=== PATIENT | female | born 1935 | race Two or more races ===

== ENCOUNTER 2017-10-22 04:37 | Emergency (ER) | payer MEDICARE, OTHER ==
[~2017-10-22] VITALS: Ht 154.9 cm; Wt 44.5 kg
--- NOTE | 2017-10-22 04:40 | ED.ADGEN ---
Past History Past Medical History: Cancer (SILVIO WEEKS MD) Past Surgical History: Colectomy (SILVIO WEEKS MD) Adult General Chief Complaint Chief Complaint " I have pain... I have nausea... " (SILVIO WEEKS MD) [facility] HPI Patient is a 82 year old female who presents with above hx and complaints of Nausea, abd. pain and constipation. Pt. has hx of Colon cancer- with resection 10 yrs ago. Pt. has hx of constipation since the cancer surgery. Pt. denies intake of bad food. Pt. symptoms present the last 24 hrs. Pt. denies any travel, trauma , bad food or specific ill contacts. Pt. normally follow with Dr. Kenney. (SILVIO WEEKS MD) Review of Systems Review of Systems Constitutional: Denies fever or chills [] Eyes: Denies change in visual acuity, redness, or eye pain [] HENT: Denies nasal congestion or sore throat [] Respiratory: Denies cough or shortness of breath [] Cardiovascular: No additional information not addressed in HPI [] GI: complaints of abdominal pain, nausea,. Denies vomiting, bloody stools or diarrhea [] : Denies dysuria or hematuria [] Musculoskeletal: Denies back pain or joint pain [] Integument: Denies rash or skin lesions [] Neurologic: Denies headache, focal weakness or sensory changes [] Endocrine: Denies polyuria or polydipsia [] All other systems were reviewed and found to be within normal limits, except as documented in this note. (SILVIO WEEKS MD) Family History Family History Non-contributory (SILVIO WEEKS MD) Current Medications Current Medications Current Medications Medications (Trade) Dose Ordered Sig/Phil Start Time Stop Time Status Last Admin Dose Admin Hydromorphone HCl (Dilaudid) 0.5 mg PRN Q30MIN PRN 10/22/17 07:15 10/22/17 09:03 DC 10/22/17 07:22 0.5 MG Info (Do NOT chart on this entry -- for MONITORING) 1 each PRN DAILY PRN 10/22/17 06:00 10/22/17 09:03 DC Iohexol (Omnipaque 240 Mg/ml) 50 ml 1X ONCE 3/14/18 06:00 10/22/17 06:02 DC 10/22/17 06:36 50 ML Iohexol (Omnipaque 300 Mg/ml) 75 ml 1X ONCE 10/22/17 06:00 10/22/17 06:02 DC 10/22/17 06:37 75 ML Ondansetron HCl (Zofran) 8 mg 1X ONCE 10/22/17 06:15 10/22/17 06:19 DC 10/22/17 06:10 8 MG Sodium Chloride 500 ml @ 0 mls/hr 1X ONCE 10/22/17 07:15 10/22/17 07:17 DC 10/22/17 07:15 100 MLS/HR (KY FELIPE MD) Allergies Allergies Allergies Coded Allergies Type Severity Reaction Last Updated Verified No Known Allergies Allergy Unknown 10/22/17 Yes (KY FELIPE MD) Physical Exam Physical Exam Constitutional: moderately acute distress, non-toxic appearance. [] HENT: Normocephalic, atraumatic, bilateral external ears normal, oropharynx moist, no oral exudates, nose normal. [] Eyes: PERRLA, EOMI, conjunctiva normal, no discharge. [] Neck: Normal range of motion, no tenderness, supple, no stridor. [] Cardiovascular:Bradycardia Heart rate regular rhythm, no murmur [] Lungs & Thorax: Bilateral breath sounds clear to auscultation [] Abdomen: Bowel sounds normal, soft, generalizes abd. tenderness, no masses, no pulsatile masses. Large mid line scar. Skin: Warm, dry, no erythema, no rash. [] Back: No tenderness, no CVA tenderness. [] Extremities: No tenderness, no cyanosis, no clubbing, ROM intact, no edema. Arthritic changes. Neurologic: Alert and oriented X 3, normal motor function, normal sensory function, no focal deficits noted. [] Psychologic: Affect anxious, judgement normal, mood normal. [] (SILVIO WEEKS MD) Current Patient Data Vital Signs Vital Signs Date Time Temp Pulse Resp B/P (MAP) Pulse Ox O2 Delivery O2 Flow Rate FiO2 10/22/17 08:41 75 16 132/69 (90) 96 Room Air 10/22/17 07:56 2.0 10/22/17 04:37 98.4 (KY FELIPE MD) Lab Results Laboratory Tests Test 10/22/17 04:55 10/22/17 05:19 Urine Collection Type Unknown Urine Color Yellow Urine Clarity Clear Urine pH 5.5 Urine Specific Kelley >=1.030 Urine Protein Neg (NEG-TRACE) Urine Glucose (UA) Neg mg/dL (NEG) Urine Ketones (Stick) Neg mg/dL (NEG) Urine Blood Trace (NEG) Urine Nitrite Neg (NEG) Urine Bilirubin Neg (NEG) Urine Urobilinogen Dipstick 0.2 mg/dL (0.2 mg/dL) Urine Leukocyte Esterase Neg (NEG) Urine RBC 0 /HPF (0-2) Urine WBC Rare /HPF (0-4) Urine Squamous Epithelial Cells Few /LPF Urine Bacteria 0 /HPF (0-FEW) Urine Opiates Screen Neg (NEG) Urine Methadone Screen Neg (NEG) Urine Barbiturates Neg (NEG) Urine Phencyclidine Screen Neg (NEG) Urine Amphetamine/Methamphetamine Neg (NEG) Urine Benzodiazepines Screen Neg (NEG) Urine Cocaine Screen Neg (NEG) Urine Cannabinoids Screen Neg (NEG) Urine Ethyl Alcohol Neg (NEG) Influenza Type A (Rapid) Negative (NEGATIVE) Influenza Type B (Rapid) Negative (NEGATIVE) White Blood Count 9.2 x10^3/uL (4.0-11.0) Red Blood Count 4.62 x10^6/uL (3.50-5.40) Hemoglobin 15.7 g/dL (12.0-15.5) H Hematocrit 45.0 % (36.0-47.0) Mean Corpuscular Volume 97 fL (79-100) Mean Corpuscular Hemoglobin 34 pg (25-35) Mean Corpuscular Hemoglobin Concent 35 g/dL (31-37) Red Cell Distribution Width 12.6 % (11.5-14.5) Platelet Count 222 x10^3/uL (140-400) Neutrophils (%) (Auto) 88 % (31-73) H Lymphocytes (%) (Auto) 5 % (24-48) L Monocytes (%) (Auto) 7 % (0-9) Eosinophils (%) (Auto) 0 % (0-3) Basophils (%) (Auto) 0 % (0-3) Neutrophils # (Auto) 8.0 x10^3uL (1.8-7.7) H Lymphocytes # (Auto) 0.4 x10^3/uL (1.0-4.8) L Monocytes # (Auto) 0.6 x10^3/uL (0.0-1.1) Eosinophils # (Auto) 0.0 x10^3/uL (0.0-0.7) Basophils # (Auto) 0.0 x10^3/uL (0.0-0.2) Prothrombin Time 9.4 SEC (9.4-11.4) Prothrombin Time INR 0.9 (0.9-1.1) PTT 21 SEC (23-33) L Sodium Level 140 mmol/L (136-145) Potassium Level 3.6 mmol/L (3.5-5.1) Chloride Level 103 mmol/L (98-107) Carbon Dioxide Level 26 mmol/L (21-32) Anion Gap 11 (6-14) Blood Urea Nitrogen 25 mg/dL (7-20) H Creatinine 0.8 mg/dL (0.6-1.0) Estimated GFR (Cockcroft-Gault) 68.8 Glucose Level 117 mg/dL (70-99) H Calcium Level 9.8 mg/dL (8.5-10.1) Total Bilirubin 0.7 mg/dL (0.2-1.0) Direct Bilirubin 0.2 mg/dL (0.0-0.2) Aspartate Amino Transferase (AST) 29 U/L (15-37) Alanine Aminotransferase (ALT) 37 U/L (14-59) Alkaline Phosphatase 92 U/L (46-116) Creatine Kinase 65 U/L (26-192) Creatine Kinase MB (Mass) 1.8 ng/mL (0.0-3.6) Creatine Kinase MB Relative Index 2.8 % (0-4) Troponin I Quantitative < 0.017 ng/mL (0-0.055) Total Protein 7.3 g/dL (6.4-8.2) Albumin 3.9 g/dL (3.4-5.0) Amylase Level 42 U/L (25-115) Lipase 147 U/L (73-393) (KY FELIPE MD) Lab Results Laboratory Tests Test 10/22/17 04:55 10/22/17 05:19 Urine Collection Type Unknown Urine Color Yellow Urine Clarity Clear Urine pH 5.5 Urine Specific Kelley >=1.030 Urine Protein Neg (NEG-TRACE) Urine Glucose (UA) Neg mg/dL (NEG) Urine Ketones (Stick) Neg mg/dL (NEG) Urine Blood Trace (NEG) Urine Nitrite Neg (NEG) Urine Bilirubin Neg (NEG) Urine Urobilinogen Dipstick 0.2 mg/dL (0.2 mg/dL) Urine Leukocyte Esterase Neg (NEG) Urine RBC 0 /HPF (0-2) Urine WBC Rare /HPF (0-4) Urine Squamous Epithelial Cells Few /LPF Urine Bacteria 0 /HPF (0-FEW) Urine Opiates Screen Neg (NEG) Urine Methadone Screen Neg (NEG) Urine Barbiturates Neg (NEG) Urine Phencyclidine Screen Neg (NEG) Urine Amphetamine/Methamphetamine Neg (NEG) Urine Benzodiazepines Screen Neg (NEG) Urine Cocaine Screen Neg (NEG) Urine Cannabinoids Screen Neg (NEG) Urine Ethyl Alcohol Neg (NEG) Influenza Type A (Rapid) Negative (NEGATIVE) Influenza Type B (Rapid) Negative (NEGATIVE) White Blood Count 9.2 x10^3/uL (4.0-11.0) Red Blood Count 4.62 x10^6/uL (3.50-5.40) Hemoglobin 15.7 g/dL (12.0-15.5) H Hematocrit 45.0 % (36.0-47.0) Mean Corpuscular Volume 97 fL (79-100) Mean Corpuscular Hemoglobin 34 pg (25-35) Mean Corpuscular Hemoglobin Concent 35 g/dL (31-37) Red Cell Distribution Width 12.6 % (11.5-14.5) Platelet Count 222 x10^3/uL (140-400) Neutrophils (%) (Auto) 88 % (31-73) H Lymphocytes (%) (Auto) 5 % (24-48) L Monocytes (%) (Auto) 7 % (0-9) Eosinophils (%) (Auto) 0 % (0-3) Basophils (%) (Auto) 0 % (0-3) Neutrophils # (Auto) 8.0 x10^3uL (1.8-7.7) H Lymphocytes # (Auto) 0.4 x10^3/uL (1.0-4.8) L Monocytes # (Auto) 0.6 x10^3/uL (0.0-1.1) Eosinophils # (Auto) 0.0 x10^3/uL (0.0-0.7) Basophils # (Auto) 0.0 x10^3/uL (0.0-0.2) Prothrombin Time 9.4 SEC (9.4-11.4) Prothrombin Time INR 0.9 (0.9-1.1) PTT 21 SEC (23-33) L Sodium Level 140 mmol/L (136-145) Potassium Level 3.6 mmol/L (3.5-5.1) Chloride Level 103 mmol/L (98-107) Carbon Dioxide Level 26 mmol/L (21-32) Anion Gap 11 (6-14) Blood Urea Nitrogen 25 mg/dL (7-20) H Creatinine 0.8 mg/dL (0.6-1.0) Estimated GFR (Cockcroft-Gault) 68.8 Glucose Level 117 mg/dL (70-99) H Calcium Level 9.8 mg/dL (8.5-10.1) Total Bilirubin 0.7 mg/dL (0.2-1.0) Direct Bilirubin 0.2 mg/dL (0.0-0.2) Aspartate Amino Transferase (AST) 29 U/L (15-37) Alanine Aminotransferase (ALT) 37 U/L (14-59) Alkaline Phosphatase 92 U/L (46-116) Creatine Kinase 65 U/L (26-192) Creatine Kinase MB (Mass) 1.8 ng/mL (0.0-3.6) Creatine Kinase MB Relative Index 2.8 % (0-4) Troponin I Quantitative < 0.017 ng/mL (0-0.055) Total Protein 7.3 g/dL (6.4-8.2) Albumin 3.9 g/dL (3.4-5.0) Amylase Level 42 U/L (25-115) Lipase 147 U/L (73-393) (SILVIO WEEKS MD) EKG EKG My interpretation of EKG shows sinus rhythm at 62 bpm. Some mild left atrial enlargement. No findings acute STEMI with contralateral changes.[] (SILVIO WEEKS MD) Radiology/Procedures Radiology/Procedures My interpretation of Acute Abd film shows no free air under the diaphragm. Chest portion of film shows no acute cardiopulmonary findings. Abdomen film shows air-fluid levels consistent with small bowel obstruction. Findings of previous surgery. Has findings of degenerative joint changes.[] CT pending at time of shift change. (SILVIO WEEKS MD) Course & Med Decision Making Course & Med Decision Making Pertinent Labs and Imaging studies reviewed. (See chart for details)- Check out to at shift change- CT abd. pending at shift change. [] (SILVIO WEEKS MD) Final Impression Final Impression 1. Nausea 2. Abdomen Pain 3. Hx. Colon Cancer 4. Ileus- appears to be distal small bowel obstruction or ileus- adhesions ect. Problems: (SILVIO WEEKS MD) Dragon Disclaimer Dragon Disclaimer This electronic medical record was generated, in whole or in part, using a voice recognition dictation system. (SILVIO WEEKS MD) Assessment/Plan Assessment/Plan 82-year-old female with a history of colon cancer status post a partial colectomy with reanastomosis presenting to the emergency department today with nausea vomiting and abdominal pain. Her abdominal pain is a cramping sensation, moderate in severity. It is intermittent. The patient was signed out to me after being seen by Dr. Weeks. Sign out at 6 AM. Plan to follow-up on CT abdomen pelvis and blood work. On examination the patient the patient is well- appearing alert and nontoxic-appearing. Abdominal exam shows midline surgical scar. Abdomen is soft and nontender palpation. No rebound tenderness or guarding. Mild distension present. No palpable hernias. No palpable pulsatile masses. CT the abdomen pelvis suggestive of small bowel obstruction. Patient's surgeon last perform surgery more than 10 years ago at [facility] and patient and her here are unsure whether the patient's surgeon is still at that hospital. Given the patient's, I ordered for the patient to be nothing by mouth. I discussed the case with Dr. Miranda our surgeon who recommended holding off on placing an NG tube unless the patient is actively vomiting. Currently the patient is not vomiting and is improved with antiemetics and fluids. We will admit the patient to [facility] to Dr. Thao who accepts the patient for transfer. (KY FELIPE MD) SILVIO WEEKS MD Oct 22, 2017 04:40 [place] FELIPE MD Oct 22, 2017 07:44
[2017-10-22] MEDS ORDERED: ONDANSETRON PF 4 MG/2 ML VIAL. IV ONE ×2 (04:45→06:15)
[2017-10-22] MEDS ORDERED: IV NORMAL SALINE 1,000ML 1,000 ML IV SCH (04:45)
--- NOTE | 2017-10-22 05:01 | EKG ---
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
[2017-10-22] MEDS ORDERED: IOHEXOL 240 MG/ML 50ML VIAL. ONE (05:37)
[2017-10-22 05:39] LABS: BASO % 0 % (0-3); EOS % 0 % (0-3); HEMOGLOBIN 15.7 g/dL (12.0-15.5); LYMPH # 0.4 x10^3/uL (1.0-4.8); LYMPH % 5 % (24-48); MEAN CORPUSCULAR HEMOGLOBIN 34 pg (25-35); MEAN CORPUSCULAR HGB CONC 35 g/dL (31-37); MEAN CORPUSCULAR VOLUME 97 fL (79-100); MONO # 0.6 x10^3/uL (0.0-1.1); MONO % 7 % (0-9); NEUT % 88 % (31-73); PLATELET COUNT 222 x10^3/uL (140-400); RED BLOOD COUNT 4.62 x10^6/uL (3.50-5.40); RED CELL DISTRIBUTION WIDTH 12.6 % (11.5-14.5); WHITE BLOOD COUNT 9.2 x10^3/uL (4.0-11.0)
[2017-10-22 05:44] LABS: BACTERIA,URINE 0 /HPF (0-FEW); BILIRUBIN,URINE NEG (NEG); CLARITY,URINE CLEAR; COLOR,URINE YELLOW; GLUCOSE,URINE NEG (NEG); NITRITE,URINE NEG (NEG); RBC,URINE 0 /HPF (0-2); SQUAMOUS EPITHELIAL CELL,UR FEW /LPF; UROBILINOGEN,URINE 0.2 mg/dL (0.2 mg/dL); WBC,URINE RARE /HPF (0-4)
[2017-10-22 05:48] LABS: BARBITURATES NEG (NEG); BENZODIAZEPINES NEG (NEG); CANNABINOIDS NEG (NEG); COCAINE NEG (NEG); METHADONE NEG (NEG); OPIATES NEG (NEG); PHENCYCLIDINE NEG (NEG)
[2017-10-22 05:49] LABS: AMPHETAMINE/METHAMPHETAMINE NEG (NEG)
[2017-10-22 05:52] LABS: INFLUENZA A PATIENT NEGATIVE (NEGATIVE); INFLUENZA B PATIENT NEGATIVE (NEGATIVE)
[2017-10-22] MEDS ORDERED: IOHEXOL 300 MG/ML 75 ML VIAL. IV ONE (06:00)
[2017-10-22] MEDS ORDERED: CONTRAST GIVEN MC PRN (06:00)
[2017-10-22] MEDS ORDERED: IOHEXOL 240 MG/ML 50ML VIAL. PO ONE (06:00)
[2017-10-22 06:05] LABS: ALBUMIN 3.9 g/dL (3.4-5.0); CALCIUM 9.8 mg/dL (8.5-10.1); CREATININE 0.8 mg/dL (0.6-1.0); DIRECT BILIRUBIN 0.2 mg/dL (0.0-0.2); GFR 68.8; POTASSIUM 3.6 mmol/L (3.5-5.1); TOTAL BILIRUBIN 0.7 mg/dL (0.2-1.0); TOTAL PROTEIN 7.3 g/dL (6.4-8.2)
--- NOTE | 2017-10-22 07:05 | RAD ---
INDICATION: [id number] Omni 300 75cc: Abdominal pain, nausea and vomiting, bloating. Hx: Colon cancer 11 yrs ago with resection. Old images sent from 02/03/08 for comparison. COMPARISON: February 03, 2008 TECHNIQUE: Axial CT images obtained through the abdomen and pelvis with contrast. One or more of the following individualized dose reduction techniques were utilized for this examination: 1. Automated exposure control; 2. Adjustment of the mA and/or kV according to patient size; 3. Use of iterative reconstruction technique. FINDINGS: Partial visualization of coronary artery calcific atherosclerosis. Severe calcific atherosclerosis with ectasia infrarenal abdominal aorta. The gallbladder appears contracted. No definite intrahepatic bile duct dilation. No peripancreatic fluid collection. Spleen unremarkable. No left-sided hydronephrosis. The urinary bladder is largely decompressed with minimal urine within at time of exam. No right-sided hydronephrosis. Repeat demonstration of thickening of the soft tissues in the presacral region with some calcification seen within the area is well. The presacral soft tissue thickening measures up to about 18 mm in thickness on current examination which is similar to slightly decreased from prior. Postoperative appearance of the bowel with staple line seen. There is diffuse dilation of the small bowel identified with hyperenhancement of the mucosa. These dilated loops of bowel measure up to about 48 mm. There is some decompression seen at the distalmost aspect of the ileum near the level of the anastomosis with hyperenhancement of the mucosa in the region. There is some mesenteric edema. Degenerative changes of the bilateral hips. Degenerative changes the spine. There is either a Schmorl's node or compression deformity of the inferior endplate of L2. This was not present in 2007 but suspect that this is chronic unless the patient has pain in the region. IMPRESSION: Diffuse dilation of the small bowel is identified with distal decompression just proximal to the small bowel anastomosis in the right side of the abdomen. The distal most aspect of the ileum is decompressed with mucosal hyperenhancement. This could be secondary to a small bowel obstruction. Given the wall thickening at the distal ileum its possible that this is from causes such as enteritis or a stricture within the region. There is some mild edema seen within the mesentery as well. Repeat demonstration of presacral soft tissue thickening but this appears to be a chronic finding since it was present in 2007 as well. There is either a Schmorl's node or compression deformity of the inferior endplate of L2. This was not present in 2008 but suspect that this is chronic unless the patient has pain in the region. Electronically signed by: Ian Irene MD (10/22/2017 7:02 AM) [facility]
[2017-10-22] MEDS ORDERED: HYDROmorphone PF 2 MG/ML VIAL ONE (07:14)
[2017-10-22] MEDS ORDERED: HYDROmorphone PF 1 MG/ML DISP.SYRIN IV PRN (07:15)
[2017-10-22] MEDS ORDERED: IV NORMAL SALINE 500ML 500 ML IV ONE (07:15)
--- NOTE | 2017-10-22 07:21 | RAD ---
Acute abdomen series with chest, 3 views, 10/22/2017: History: Abdominal pain and bloating There is mild to moderate gaseous distention of small bowel loops in the central abdomen with scattered air-fluid levels. There is gas and stool in the colon without colonic dilatation. No free air is present in the abdomen. There is a moderate amount of fluid in the stomach. Scattered vascular calcifications are present. Moderate degenerative change is present in the lumbar spine. The heart size is normal. No pulmonary infiltrate or pleural fluid is seen. IMPRESSION: Dilated small bowel loops compatible small bowel obstruction.
[2017-10-22 08:41] VITALS: BP 132/69
== END 2017-10-22 08:55 | disposition other institution (70) ==
LOC: ER 04:37
DX: K56.7 Ileus, unspecified (principal); Z90.49 Acquired absence of other specified parts of digestive tract
CPT/HCPCS: 36415; 74022; 74177; 80048; 80076; 80307; 81001; 82150; 82553; 83690; 84484; 85025; 85610; 85730; 87804; 93005; 96361; 96374; 96375; 96376; 99285; J1170; J2405; J7040; Q9966; Q9967; G0479; J7030

== ENCOUNTER 2018-11-23 03:01 | Emergency (ER) | payer MEDICARE, OTHER ==
[~2018-11-23] VITALS: Ht 157.5 cm; Wt 44.9 kg
--- NOTE | 2018-11-23 03:16 | PHYS DOC ---
Past History Past Medical History: Cancer (colon) Past Surgical History: Colectomy Smoking: Non-smoker Alcohol Use: None Drug Use: None Adult General Chief Complaint Chief Complaint: ABDOMINAL PAIN HPI HPI Patient is a 83-year-old female presents complaining of severe. Umbilical abdominal pain, vomiting and diarrhea. This started at approximately 7:00 yesterday evening. Nothing seems to make it better or worse. Patient has previous history of colon cancer resection approximately 11 years ago. Pain is severe. No relief with home attempts at pain control. No blood in the stool or emesis. No recent travel or trauma.[] Review of Systems Review of Systems Constitutional: Denies fever or chills [] Eyes: Denies change in visual acuity, redness, or eye pain [] HENT: Denies nasal congestion or sore throat [] Respiratory: Denies cough or shortness of breath [] Cardiovascular: No chest pain, palpitations, nor dyspnea on exertion[] GI: See history of present illness[] : Denies dysuria or hematuria [] Musculoskeletal: Denies back pain or joint pain [] Integument: Denies rash or skin lesions [] Neurologic: Denies headache, focal weakness or sensory changes [] Endocrine: Denies polyuria or polydipsia [] All other systems were reviewed and found to be within normal limits, except as documented in this note. Allergies Allergies Allergies Coded Allergies Type Severity Reaction Last Updated Verified No Known Allergies Allergy Unknown 10/22/17 Yes Physical Exam Physical Exam Constitutional: Well developed, well nourished, mild discomfort, non-toxic appearance. [] HENT: Normocephalic, atraumatic, bilateral external ears normal, oropharynx moist, no oral exudates, nose normal. [] Eyes: PERRLA, EOMI, conjunctiva normal, no discharge. [] Neck: Normal range of motion, no tenderness, supple, no stridor. [] Cardiovascular:Heart rate regular rhythm, no murmur [] Lungs & Thorax: Bilateral breath sounds clear to auscultation [] Abdomen: Bowel sounds normal, soft, diffuse tenderness, no rebound, no guarding , no rigidity, no masses, no pulsatile masses. [] Skin: Warm, dry, no erythema, no rash. [] Back: No tenderness, no CVA tenderness. [] Extremities: No tenderness, no cyanosis, no clubbing, ROM intact, no edema. [] Neurologic: Alert and oriented X 3, normal motor function, normal sensory function, no focal deficits noted. [] Psychologic: Affect normal, judgement normal, mood normal. [] EKG EKG EKG shows a sinus rhythm at 48 bpm, normal axis, QTC 439 ms, no ST elevations. Interpreted by me at 0324[] Radiology/Procedures Radiology/Procedures PROCEDURE: CT ABD PELV W/ORAL&IV CONTRAST CT abdomen and pelvis with contrast PQRS statement: CT scans at this facility use dose reduction including either automated exposure control, iterative reconstructions, and /or weight based radiation dosing via mA and kV modification when appropriate to reduce radiation dose to as low as reasonably achievable. HISTORY: Colon cancer status post resection. Severe. Umbilical abdominal pain. Nausea. TECHNIQUE: Axial CT imaging abdomen and pelvis with oral Omnipaque 240 contrast and 75 mL Omnipaque 300 intravenous contrast. COMPARISON: CT abdomen and pelvis 11/22/2017. Abdomen findings: Liver, gallbladder, pancreas, adrenal glands, kidneys and spleen are unremarkable. Mild gastroesophageal reflux of oral contrast. Chronic L2 vertebral mild compression deformity. Lumbar disc disease. Lung bases are unremarkable. Postoperative change of right lower quadrant small bowel partial resection with enteric anastomosis, there is a small bowel obstruction leading up to the enteric anastomosis suture line or just prior to the suture line which could be related to a stricture or adhesion. Aorta and iliac artery calcified plaque. Mild ectasia mid abdominal aorta diameter 2.1 cm. No abdominal fluid or adenopathy. Pelvis findings: Presacral soft tissue density and calcification likely fibrosis from prior surgery or radiation. Uterus displaced posteriorly adjacent of fibrosis, stable. Ovaries not visualized may be surgically absent or atrophic. Cecum within the pelvis adjacent of the uterus and fibrosis stable. Bladder and bones are unremarkable. IMPRESSION: 1. Small bowel obstruction transition point at the distal ileum which could be due to a stricture at a partial small bowel resection and enteric anastomosis site, or due to an adhesion. 2. Posttreatment changes are stable.[] Course & Med Decision Making Course & Med Decision Making Pertinent Labs and Imaging studies reviewed. (See chart for details) Medical decision making: Patient appears to have a small bowel obstruction, no evidence of perforation. No evidence of an acute coronary syndrome. No evidence of urinary tract infection. ED course: Patient arrived, was placed in bed, and tolerated exam well. She was able to tolerate oral contrast and had good pain relief with the medications administered. After the return of the laboratory and imaging findings consultation was made with the hospitalist service here at [facility] who recommended the patient he transferred to a facility that has surgical capabilities. Consultation was made with Dr. ulloa who graciously accepted the patient. On further discussion with the patient, she was feeling much better and wanted to go home. Explained the risks of this option to her and she was able to state them in her own words and showed evidence of an able to make an informed decision. She was informed that she could return to the emergency department at any time. She left AGAINST MEDICAL ADVICE in improved condition[] Dragon Disclaimer Dragon Disclaimer This electronic medical record was generated, in whole or in part, using a voice recognition dictation system. Departure Departure: Impression: Primary Impression: Small bowel obstruction Disposition: AGAINST MEDICAL ADVICE Condition: IMPROVED Referrals: HANNA FERNANDEZ MD (PCP) Follow-up today Patient Instructions: Discharge Against Medical Advice, Small Bowel Obstruction Additional Instructions: Follow-up with your regular doctor today. Return to the ER if worsening pain, unable to tolerate liquids, or any other concerns. Scripts Metoclopramide Hcl (REGLAN) 10 Mg Tablet 10 MG PO QID for nausea and vomiting, #30 TAB Prov: ALEX PEREZ DO 11/23/18 Hyoscyamine Sulfate (LEVSIN) 0.125 Mg Tablet 0.125 MG PO QID for abdominal pain/cramping, #30 TAB Prov: ALEX PEREZ DO 11/23/18 ALEX PEREZ DO Nov 23, 2018 03:16
--- NOTE | 2018-11-23 03:25 | EKG ---
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
[2018-11-23] MEDS ORDERED: IV NORMAL SALINE 1,000ML 1,000 ML IV SCH (03:30)
[2018-11-23] MEDS ORDERED: HYOSCYAMINE 0.125 MG TAB.RAPDIS PO ONE (03:30)
[2018-11-23] MEDS ORDERED: PROCHLORPERAZINE 10 MG/2 ML VIAL. IV ONE (03:30)
[2018-11-23] MEDS ORDERED: CONTRAST GIVEN MC PRN (03:45)
[2018-11-23 03:57] LABS: BASO # 0.1 x10^3/uL (0.0-0.2); BASO % 1 % (0-3); EOS % 0 % (0-3); HEMATOCRIT 44.8 % (36.0-47.0); HEMOGLOBIN 15.4 g/dL (12.0-15.5); LYMPH # 0.5 x10^3/uL (1.0-4.8); LYMPH % 9 % (24-48); MEAN CORPUSCULAR HEMOGLOBIN 34 pg (25-35); MEAN CORPUSCULAR HGB CONC 35 g/dL (31-37); MEAN CORPUSCULAR VOLUME 99 fL (79-100); MONO # 0.1 x10^3/uL (0.0-1.1); MONO % 2 % (0-9); NEUT # 5.2 x10^3uL (1.8-7.7); NEUT % 88 % (31-73); PLATELET COUNT 259 x10^3/uL (140-400); RED BLOOD COUNT 4.53 x10^6/uL (3.50-5.40); RED CELL DISTRIBUTION WIDTH 12.5 % (11.5-14.5)
[2018-11-23] MEDS ORDERED: IOHEXOL 240 MG/ML 50ML VIAL. PO ONE (04:00)
[2018-11-23] MEDS ORDERED: IOHEXOL 300 MG/ML 75 ML VIAL. IV ONE (04:00)
[2018-11-23 04:05] LABS: ALBUMIN 4.1 g/dL (3.4-5.0); ALBUMIN/GLOBULIN RATIO 1.3 (1.0-1.7); CALCIUM 9.7 mg/dL (8.5-10.1); CREATININE 0.8 mg/dL (0.6-1.0); GFR 68.7; POTASSIUM 4.5 mmol/L (3.5-5.1); TOTAL BILIRUBIN 0.6 mg/dL (0.2-1.0); TOTAL PROTEIN 7.3 g/dL (6.4-8.2)
[2018-11-23 04:20] LABS: BACTERIA,URINE FEW /HPF (0-FEW); BILIRUBIN,URINE NEG (NEG); CLARITY,URINE CLEAR; COLOR,URINE YELLOW; GLUCOSE,URINE NEG (NEG); NITRITE,URINE NEG (NEG); RBC,URINE RARE /HPF (0-2); UROBILINOGEN,URINE 0.2 mg/dL (0.2 mg/dL); WBC,URINE OCC /HPF (0-4)
[2018-11-23 04:21] LABS: SQUAMOUS EPITHELIAL CELL,UR OCC /LPF
--- NOTE | 2018-11-23 05:14 | RAD ---
CT abdomen and pelvis with contrast PQRS statement: CT scans at this facility use dose reduction including either automated exposure control, iterative reconstructions, and /or weight based radiation dosing via mA and kV modification when appropriate to reduce radiation dose to as low as reasonably achievable. HISTORY: Colon cancer status post resection. Severe. Umbilical abdominal pain. Nausea. TECHNIQUE: Axial CT imaging abdomen and pelvis with oral Omnipaque 240 contrast and 75 mL Omnipaque 300 intravenous contrast. COMPARISON: CT abdomen and pelvis 11/22/2017. Abdomen findings: Liver, gallbladder, pancreas, adrenal glands, kidneys and spleen are unremarkable. Mild gastroesophageal reflux of oral contrast. Chronic L2 vertebral mild compression deformity. Lumbar disc disease. Lung bases are unremarkable. Postoperative change of right lower quadrant small bowel partial resection with enteric anastomosis, there is a small bowel obstruction leading up to the enteric anastomosis suture line or just prior to the suture line which could be related to a stricture or adhesion. Aorta and iliac artery calcified plaque. Mild ectasia mid abdominal aorta diameter 2.1 cm. No abdominal fluid or adenopathy. Pelvis findings: Presacral soft tissue density and calcification likely fibrosis from prior surgery or radiation. Uterus displaced posteriorly adjacent of fibrosis, stable. Ovaries not visualized may be surgically absent or atrophic. Cecum within the pelvis adjacent of the uterus and fibrosis stable. Bladder and bones are unremarkable. IMPRESSION: 1. Small bowel obstruction transition point at the distal ileum which could be due to a stricture at a partial small bowel resection and enteric anastomosis site, or due to an adhesion. 2. Posttreatment changes are stable. Electronically signed by: Joseluis Hampton MD (11/23/2018 5:11 AM) [id number]
[2018-11-23 05:25] VITALS: BP 111/57
[2018-11-23] MEDS ORDERED: HYOS0.1264 PO (05:51)
[2018-11-23] MEDS ORDERED: METO10TA81 PO (05:51)
== END 2018-11-23 05:55 | disposition left against medical advice (07) ==
LOC: ER 03:01
DX: K56.699 Other intestinal obstruction unspecified as to partial versus complete obstruction (principal); R19.7 Diarrhea, unspecified
CPT/HCPCS: 36415; 74177; 80053; 81001; 83690; 84484; 85025; 85610; 87086; 93005; 96361; 96374; 99285; J0780; Q9966; Q9967; J7030

== ENCOUNTER → 2018-11-23 | Outpatient (CLI) | payer MEDICARE, OTHER ==
[~2018-11-23] MED LIST: HYOS0.1264 PO; IOHEXOL 300 MG/ML 75 ML VIAL. IV ONE; METO10TA81 PO
[2018-11-23 05:25] VITALS: BP 111/57
--- NOTE | 2018-11-23 15:12 | RAD ---
CT abdomen pelvis with contrast Indication: Abdominal pain, small bowel obstruction, history of colon cancer Technique: Postcontrast CT imaging was performed of the abdomen pelvis, multiplanar reconstruction images submitted. One or more of the following individualized dose reduction techniques were utilized for this examination: 1. Automated exposure control 2. Adjustment of the mA and/or kV according to patient size 3. Use of iterative reconstruction technique. Comparison: Exam earlier the same day; older exam 11/22/2017 Findings: Oral contrast has progressed into the colon, seen to the level of the sigmoid colon. There is likely degree of wall thickening of the distal descending colon as well as sigmoid colon. There are some persistent dilated loops of small bowel although not as dilated as previously, maximal caliber now about 3 cm. There are some air-fluid levels in the small bowel. There is also relative wall thickening of segments of small bowel such as in the left abdomen. No free air is identified. No significant new significant localized extraluminal fluid collection. There is some contrast in the renal collecting systems although this may be from exam earlier the same day. While contrast was injected also for this exam, there is no arterial enhancement. There is no pleural fluid. There is again some presacral density as seen on previous exam, also some associated calcifications, overall findings likely on post therapeutic basis. Urinary bladder is opacified with contrast. There is atherosclerotic calcification of the abdominal aorta. There is no hydronephrosis of either kidney. There is vicarious excretion of contrast into the gallbladder lumen. No focal abnormality is identified of the liver, spleen, pancreas. There is again inferior endplate concavity of L2. There is multilevel lumbar facet degenerative change. IMPRESSION: 1. Compared with earlier exam earlier the same day, oral contrast is now to the level of the sigmoid colon and degree of small bowel dilatation has decreased. There is some wall thickening of the colon and small bowel as may be seen with enterocolitis. There is no free fluid or free air. Electronically signed by: Antonio Benson MD (11/23/2018 3:09 PM) [id number]
== END | disposition home or self-care (01) ==
LOC: RAD 13:58
PROVIDERS: ATTEND Physician Assistant Medical
DX: K56.609 Unspecified intestinal obstruction, unspecified as to partial versus complete obstruction (principal); I70.0 Atherosclerosis of aorta; Z85.038 Personal history of other malignant neoplasm of large intestine
CPT/HCPCS: 74177; Q9967

== ENCOUNTER → 2019-02-22 | Outpatient (CLI) | payer MEDICARE, OTHER ==
[~2019-02-22] MED LIST changes: -IOHEXOL 300 MG/ML 75 ML VIAL. IV ONE
--- NOTE | 2019-02-22 13:54 | RAD ---
Indication: Left eye pain TECHNIQUE: 3 views of the lumbar spine COMPARISON: None FINDINGS: There is straightening of the lumbar spine. This could be due to muscle spasm or positioning. Probably 8 Collapsed Schmorl's node along the inferior aspect of the L2 vertebral body. Mild multilevel intervertebral disc space narrowing seen with endplate irregularities and osteophyte formation. Multilevel facet arthropathy. SI joints within normal limits. IMPRESSION: Multilevel degenerative disc disease with facet arthropathy, worse in the lower lumbar spine. Electronically signed by: Herbert Cooper DO (02/22/2019 1:52 PM) [facility]
== END | disposition home or self-care (01) ==
LOC: PMG 11:40
PROVIDERS: ATTEND Family Medicine
DX: M51.36 Other intervertebral disc degeneration, lumbar region (principal); M48.061 Spinal stenosis, lumbar region without neurogenic claudication; M12.88 Other specific arthropathies, not elsewhere classified, other specified site; M25.78 Osteophyte, vertebrae; G47.62 Sleep related leg cramps
CPT/HCPCS: 72100